=== PATIENT | male | born 1985 | race Caucasian/White ===

== ENCOUNTER 2020-05-20 08:15 | Emergency (ER) | payer OTHER ==
[~2020-05-20] VITALS: Ht 190.5 cm; Wt 100.7 kg
[2020-05-20 08:17] VITALS: Ht 190.5 cm; Wt 100.7 kg
[2020-05-20 08:43] LABS: CALCIUM 8.4 mg/dL (8.5-10.1); CHLORIDE SERUM 102 mmol/L (98-107); CREATININE SERUM 0.9 mg/dL (0.7-1.3); GFR1 > 60 mL/min; GLUCOSE SERUM 102 mg/dL (74-106); POTASSIUM SERUM 3.4 mmol/L (3.5-5.1); SODIUM SERUM 139 mmol/L (136-145)
[2020-05-20 08:47] LABS: ALBUMIN 3.7 g/dL (3.4-5.0); ALKALINE PHOSPHATASE 74 U/L (46-116); ALT/SGPT 53 U/L (16-63); AST/SGOT 26 U/L (15-37); BILIRUBIN DIRECT 0.18 mg/dL (0.0-0.2); C REACTIVE PROTEIN 3.3 mg/dL (<=0.9); TOTAL PROTEIN, SERUM 7.7 g/dL (6.4-8.2)
[2020-05-20 08:50] LABS: BASOPHIL % 0.3 % (0-2); PLATELET COUNT 139 x10^3mcL (130-400); RED CELL DISTRIBUTION WIDTH 12.3 % (11.5-14.5)
[2020-05-20 09:37] VITALS: BP 114/677
== END 2020-05-20 09:47 | disposition home or self-care (01) ==
LOC: ED 08:15
PROVIDERS: Emergency Medicine
DX: U07.1 COVID-19 (principal)
CPT/HCPCS: 83880; Q0092